=== PATIENT | male | born 1965 | race Caucasian/White ===

== ENCOUNTER 2016-10-15 18:48 | Emergency (ER) | payer BC ==
[2016-10-15 18:54] VITALS: BP 147/97; PULSE 75; RESP 16; TEMP 98.2; O2SAT 93
[2016-10-15] MEDS ORDERED: AMOXICILLIN/CLAVULANATE POT 875/125 MG TAB PO ONE (19:05)
--- NOTE | 2016-10-15 19:06 | EDPHY ---
H & P Time Seen by Provider: 10/15/16 18:55 HPI/ROS: CHIEF COMPLAINT: Cat bite to head HISTORY OF PRESENT ILLNESS: 50-year-old man was holding his cat on his right shoulder this morning on his shoulder when the cat freaked out and bit him on the head and scratched him in the back of the scalp. He presents with redness tenderness and swelling of the 3 areas. REVIEW OF SYSTEMS: No fever or chills PAST MEDICAL HISTORY: Includes hypertension, remote history of skull fracture, multiple orthopedic Social history: Nonsmoker General Appearance: Alert and conversant, cooperative. Patient has superficial 1 cm scratch in the back of his scalp and 2 puncture wounds 1 on the hairline on the right parietal area and 1 closer to above the right ear. Altered are slightly red and swollen. Slightly tender to the touch. No fluctuance and no wound drainage. Emergency Department course/MDM: Likely infected cat bite. Does not have systemic signs of toxicity. Patient's own cat is up-to-date on its immunizations. Oral Augmentin discussed and consented. Smoking Status: Never smoked Constitutional: Initial Vital Signs Temperature (C) 36.8 C 10/15/16 18:50 Heart Rate 75 10/15/16 18:50 Respiratory Rate 16 10/15/16 18:50 Blood Pressure 147/97 H 10/15/16 18:50 O2 Sat (%) 93 10/15/16 18:50 O2 Delivery Mode Room Air Allergies/Adverse Reactions: No Known Allergies Allergy (Unverified 10/15/16 18:55) Home Medications: Medication Instructions Recorded Amoxicillin/Clavulanate Pot 875 mg PO BID #20 tab 10/15/16 [Augmentin 875 mg tab] Lisinopril 10/15/16 MDM/Departure - MDM Medications Given: Discontinued Medications Amoxicillin/Clavulanate Potassium (Augmentin 875mg) 875 mg PO EDNOW ONE PRN Reason: Protocol Stop: 10/15/16 19:06 Last Admin: 10/15/16 19:12 Dose: 875 mg - Depart Disposition: Home, Routine, Self-Care Clinical Impression: cat bite head Condition: Good Instructions: Animal Bite (ED) Additional Instructions: Return for worsening swelling or redness, fever, drainage or pus from the wounds. Prescriptions: Amoxicillin/Clavulanate Pot [Augmentin 875 mg tab] 875 mg PO BID #20 tab Referrals: Robbie Calderon MD [Primary Care Provider] - As per Instructions
== END 2016-10-15 19:23 | disposition home or self-care (01) ==
DX: S01.95XA Open bite of unspecified part of head, initial encounter (principal); W55.01XA Bitten by cat, initial encounter; Y93.89 Activity, other specified

== ENCOUNTER → 2017-01-31 | Outpatient (CLI) | payer BC | LOC: BMCIMAGING 15:37 | PROVIDERS: ATTEND Internal Medicine | DX: S42.021D Displaced fracture of shaft of right clavicle, subsequent encounter for fracture with routine healing (principal) ==